=== PATIENT | female | born 1940 | race Caucasian/White ===

== ENCOUNTER → 2019-03-09 | Outpatient (CLI) | payer MEDICARE, OTHER ==
[~2019-03-09] MED LIST: ACETAMINOPHEN325 M1; AMLODIPINE-BEN1 EACH PO; B12 5,000 MCG1 EACH SL; BENAZEPRIL HCL20 MG; CALCIUM 600 +1 EAC1 PO; CHANTIX1 MG; CIPROFLOXACIN500 M3; CO Q-10100 MG PO; FISH OIL 1,0001 EAC5 PO; FLAGYL500 MG; GENICIN500 MG; GREEN TEA1 EACH PO; LEVOTHROID100 MC1 PO; MIRALAX255 GM; MOM; MYLANTA 12 OZ355 M1; NORVASC10 MG; OMEPRAZOLE 20 M20 MG; OSTEO BI-FLEX1 EAC1 PO; PEPCID AC20 M1; PLAVIX 75 MG TA75 M1 PO; RANITIDINE 150150 MG PO; TRAMADOL 50 MG50 MG PO; ULTRAM 50MG TAB50 MG PO; VITAMIN B-12500 MCG PO; VITAMIN D1000 UNI1; VITAMIN D400 UNI1 PO; VITAMIN E100 M1 PO; ZINC CHELATE50 MG PO
== END ==
LOC: M.RAD 14:28
DX: Z12.31 Encounter for screening mammogram for malignant neoplasm of breast (principal); M81.0 Age-related osteoporosis without current pathological fracture; Z88.2 Allergy status to sulfonamides; Z78.0 Asymptomatic menopausal state